=== PATIENT | male | born 1970 | race Caucasian/White ===

== ENCOUNTER 2018-11-14 15:00 | Emergency (ER) | payer OTHER ==
[~2018-11-14] VITALS: Ht 180.3 cm; Wt 89.5 kg
[~2018-11-14 15:00] MED LIST: ASPI81TA45 PO; ATOR20TA PO; CARV3.1212 PO; CLIN300C8 PO; ESCI5TAB7 PO; HYDR-3237 PO; INSU100I13 SC; INSU100I18 SQ-INSULIN; LOSA50TA14 PO; SULF1TAB24 PO
[2018-11-14 15:06] VITALS: BP 150/100
--- NOTE | 2018-11-14 15:21 | NUR ---
LIGHTING DIRECTOR: MCKAY 255 IN TRIAGE, CHECKED PER THEO [place]
== END 2018-11-14 16:18 | disposition home or self-care (01) ==
LOC: ED 15:59
DX: E11.65 Type 2 diabetes mellitus with hyperglycemia (principal); R05 Cough; I10 Essential (primary) hypertension; M79.18 Myalgia, other site; Z90.49 Acquired absence of other specified parts of digestive tract; Z86.73 Personal history of transient ischemic attack (TIA), and cerebral infarction without residual deficits
CPT/HCPCS: 71046; 82962; 99283

== ENCOUNTER 2018-11-18 21:42 | Inpatient (IN) | payer OTHER ==
[~2018-11-18] VITALS: Ht 185.4 cm; Wt 85.9 kg
[2018-11-18] MEDS ORDERED: SODIUM CHLORIDE FLUSH 10ML SYR IVF ONE (22:30)
[2018-11-18] MEDS ORDERED: SODIUM CHLORIDE 0.9% 1,000ML IVBOLUS ONE (22:30)
[2018-11-18 22:34] LABS: RAPID INFLUENZA A Negative (Negative); RAPID INFLUENZA B Negative (Negative)
[2018-11-18 22:45] LABS: PH, VENOUS 7.406 pH (7.320-7.420)
[2018-11-18 22:54] LABS: BASOPHILS # (AUTO) 0.02 x10^3/uL (0-0.1); BASOPHILS % (AUTO) 0 % (0-1); EOSINOPHILS % (AUTO) 0 % (1-7); LYMPHOCYTES # (AUTO) 0.84 x10^3/uL (1-3.4); LYMPHOCYTES % (AUTO) 9 % (22-44); MD NO; MEAN CORPUSCULAR HEMOGLOBIN 27.5 pg (27.5-34.5); MEAN CORPUSCULAR HGB CONC 33.8 g/dL (33.2-36.2); MEAN CORPUSCULAR VOLUME 81.4 fL (81-97); MEAN PLATELET VOLUME 9.5 fL (7.4-10.4); MONOCYTES # (AUTO) 0.63 x10^3/uL (0.2-0.8); MONOCYTES % (AUTO) 7 % (2-9); NEUTROPHILS % (AUTO) 84 % (42-75); PLATELET COUNT 233 x10^3/uL (130-400); RED BLOOD COUNT 5.27 x10^6/uL (4.38-5.82)
[2018-11-18 22:59] LABS: ALANINE AMINOTRANSFERASE 16 U/L (12-78); ALBUMIN 2.8 g/dL (3.4-5.0); ANION GAP 10 mmol/L (5-15); CALCIUM 8.8 mg/dL (8.5-10.1); CHLORIDE 93 mmol/L (98-107); CREATININE 1.77 mg/dL (0.7-1.3)
[2018-11-18] MEDS ORDERED: ONDANSETRON 2MG/ML, 2ML IVPush ONE (23:00)
[2018-11-18 23:01] LABS: ALKALINE PHOSPHATASE 94 U/L (45-117); BILIRUBIN,TOTAL 0.8 mg/dL (0.2-1.0); TOTAL PROTEIN 8.2 g/dL (6.4-8.2)
[2018-11-18 23:32] LABS: ACETONE, SERUM Large (80mg/dL) mg/dL (Negative)
--- NOTE | 2018-11-18 23:53 | NUR ---
IV WAS STARTED given ns bolus after labs results were obtained pt is resting at bed side
[2018-11-19] MEDS ORDERED: INSULIN REGULAR 100 UNITS/ML, 3ML VIAL ONE (00:44)
--- NOTE | 2018-11-19 00:46 | NUR ---
fsbs 347 given 10units of reg insulin via iv per dr welch pt is in and out sleeping oxygen sats 86-91% intermittently
[2018-11-19] MEDS ORDERED: INSULIN REGULAR 100 UNITS/ML, 3ML VIAL IVPush ONE (01:00)
--- NOTE | 2018-11-19 01:20 | NUR ---
recheck fsbs 305 after given iv insulin 10units
[2018-11-19 01:36] LABS: TROPONIN I < 0.015 ng/mL (0.000-0.045)
--- NOTE | 2018-11-19 01:45 | NUR ---
given water pt is resting applied oxygen via nc d/t oxygen sats decreased up to 83%
[2018-11-19] MEDS ORDERED: OMNIPAQUE 350 MG/ML, 100ML BOTTLE ONE (02:50)
[2018-11-19] MEDS ORDERED: AZITHROMYCIN 500 MG in SODIUM CHLORIDE 0.9% 250 ML IV ONE (03:30)
[2018-11-19] MEDS ORDERED: CEFTRIAXONE PMX 1GM/50ML 50 ML IV ONE (03:30)
[2018-11-19] MEDS ORDERED: SODIUM CHLORIDE 0.9% 1,000 ML IV SCH (03:45)
[2018-11-19] MEDS ORDERED: POLYETHYLENE GLYCOL 17 GM PACKET PO PRN (04:00)
[2018-11-19] MEDS ORDERED: hydrALAzine 20 MG/ML, 1ML IVPush PRN (04:00)
[2018-11-19] MEDS ORDERED: GUAIFENESIN/DM 200-20MG, 10ML UDC PO PRN (04:00)
[2018-11-19] MEDS ORDERED: GUAIFENESIN/COD200MG-20MG/10ML LIQUID PO PRN (04:00)
[2018-11-19] MEDS: CEFTRIAXONE PMX 1GM/50ML 50 ML IV SCH (04:00)
[2018-11-19] MEDS: AZITHROMYCIN 500 MG in SODIUM CHLORIDE 0.9% 250 ML IV SCH (04:00)
[2018-11-19] MEDS ORDERED: ACETAMINOPHEN 325 MG TABLET PO PRN (04:00)
[2018-11-19] MEDS ORDERED: ONDANSETRON 2MG/ML, 2ML IVPush PRN ×2 (04:00)
--- NOTE | 2018-11-19 04:09 | NUR ---
GIVEN WATER PT IS RESTING AT BED SIDE
[2018-11-19] MEDS ORDERED: CEFTRIAXONE PMX 1GM/50ML 50 ML ONE (04:26)
[2018-11-19] MEDS ORDERED: ONDANSETRON 2MG/ML, 2ML ONE (05:06)
--- NOTE | 2018-11-19 05:11 | NUR ---
PT C/O NAUSEA GIVEN ZOFRAN IV THEN PT STATED FEELS BETTER
--- NOTE | 2018-11-19 05:29 | NUR ---
GIVEN REPORT TO HUI DURAND PT WILL BE TRANSFERRED
[2018-11-19 05:50] VITALS: BP 104/69
[2018-11-19 07:23] VITALS: BP 135/89
[2018-11-19] MEDS ORDERED: INSULIN GLARGINE 100 UNITS/ML, PEN SQ-INSULIN SCH (09:00)
[2018-11-19] MEDS: CITALOPRAM 20 MG TABLET PO SCH (09:48)
[2018-11-19] MEDS: INSULIN LISPRO 100 UNITS/ML, PEN SQ-INSULIN SCH ×4 (09:48→20:12)
[2018-11-19] MEDS: GUAIFENESIN ER 600 MG TABLET PO SCH ×2 (09:49→20:12)
[2018-11-19] MEDS: INSULIN GLARGINE 100 UNITS/ML, PEN SQ-INSULIN SCH ×2 (09:50→20:11)
[2018-11-19] MEDS: ENOXAPARIN 40 MG/0.4 ML SQ SCH (09:51)
[2018-11-19 11:05] LABS: CULTURE INDICATED? NO; MICROSCOPIC AUTO
[2018-11-19 12:47] VITALS: BP 108/68
[2018-11-19] MEDS: SODIUM CHLORIDE 0.9% 1,000 ML IV SCH ×2 (14:53→23:56)
[2018-11-19 19:20] VITALS: BP 126/74
[2018-11-19] MEDS ORDERED: ATORVASTATIN 20 MG TABLET PO SCH (21:00)
[2018-11-20 01:15] VITALS: BP 113/64
[2018-11-20] MEDS: CEFTRIAXONE PMX 1GM/50ML 50 ML IV SCH (03:59)
[2018-11-20] MEDS: AZITHROMYCIN 500 MG in SODIUM CHLORIDE 0.9% 250 ML IV SCH (04:48)
[2018-11-20 05:56] LABS: BASOPHILS # (AUTO) 0.02 x10^3/uL (0-0.1); BASOPHILS % (AUTO) 0 % (0-1); EOSINOPHILS # (AUTO) 0.05 x10^3/uL (0-0.4); EOSINOPHILS % (AUTO) 1 % (1-7); LYMPHOCYTES # (AUTO) 0.63 x10^3/uL (1-3.4); LYMPHOCYTES % (AUTO) 10 % (22-44); MD NO; MEAN CORPUSCULAR HEMOGLOBIN 27.5 pg (27.5-34.5); MEAN CORPUSCULAR HGB CONC 33.9 g/dL (33.2-36.2); MEAN CORPUSCULAR VOLUME 80.9 fL (81-97); MEAN PLATELET VOLUME 9.2 fL (7.4-10.4); MONOCYTES # (AUTO) 0.63 x10^3/uL (0.2-0.8); MONOCYTES % (AUTO) 10 % (2-9); NEUTROPHILS # (AUTO) 4.86 x10^3/uL (1.8-6.8); NEUTROPHILS % (AUTO) 79 % (42-75); PLATELET COUNT 176 x10^3/uL (130-400); RED BLOOD COUNT 4.44 x10^6/uL (4.38-5.82); RED CELL DISTRIBUTION WIDTH 12.9 % (9.4-14.8)
[2018-11-20 06:00] LABS: CHLORIDE 106 mmol/L (98-107)
[2018-11-20 06:08] LABS: ALANINE AMINOTRANSFERASE 10 U/L (12-78); ALKALINE PHOSPHATASE 63 U/L (45-117); ANION GAP 4 mmol/L (5-15); BILIRUBIN,TOTAL 0.5 mg/dL (0.2-1.0); CREATININE 0.81 mg/dL (0.7-1.3); TOTAL PROTEIN 6.2 g/dL (6.4-8.2)
[2018-11-20] MEDS: INSULIN LISPRO 100 UNITS/ML, PEN SQ-INSULIN SCH ×2 (07:00→11:00)
[2018-11-20 07:02] VITALS: BP 145/84
[2018-11-20] MEDS: ENOXAPARIN 40 MG/0.4 ML SQ SCH (09:35)
[2018-11-20] MEDS: CITALOPRAM 20 MG TABLET PO SCH (09:35)
[2018-11-20] MEDS: GUAIFENESIN ER 600 MG TABLET PO SCH (09:35)
[2018-11-20] MEDS: INSULIN GLARGINE 100 UNITS/ML, PEN SQ-INSULIN SCH (09:37)
[2018-11-20] MEDS ORDERED: CEFP200T PO (11:00)
[2018-11-20] MEDS ORDERED: AZIT250T PO (11:00)
[2018-11-20] MEDS ORDERED: INSU100I13 SC (11:00)
[2018-11-20] MEDS ORDERED: GUAI600T31 PO (11:00)
[2018-11-20 12:30] VITALS: BP 105/73
== END 2018-11-20 17:39 | disposition home or self-care (01) | DRG 682 ==
LOC: ED 23:51 → EDIP 11-19 03:32 → SUATTDRO 11-19 03:35 → 4WST 11-19 05:36
PROVIDERS: ADMIT Hospitalist; ATTEND Hospitalist
DX: N17.9 Acute kidney failure, unspecified (principal); J15.9 Unspecified bacterial pneumonia; E43 Unspecified severe protein-calorie malnutrition; J96.01 Acute respiratory failure with hypoxia; M48.54XA Collapsed vertebra, not elsewhere classified, thoracic region, initial encounter for fracture; E87.1 Hypo-osmolality and hyponatremia; E11.65 Type 2 diabetes mellitus with hyperglycemia; I45.10 Unspecified right bundle-branch block; Z79.4 Long term (current) use of insulin; Z86.73 Personal history of transient ischemic attack (TIA), and cerebral infarction without residual deficits; I10 Essential (primary) hypertension; E86.9 Volume depletion, unspecified; Z90.49 Acquired absence of other specified parts of digestive tract; Z68.25 Body mass index [BMI] 25.0-25.9, adult
CPT/HCPCS: 36415; 71045; 71275; 80053; 81001; 82010; 82803; 82947; 82962; 83735; 83930; 84100; 84484; 85025; 87040; 87400; 93005; G0378; J0456; J0696; J1650; J2405; Q9967; J1815; J7030; J7050

== ENCOUNTER 2018-12-27 22:00 | Emergency (ER) | payer OTHER ==
[~2018-12-27] VITALS: Ht 177.8 cm; Wt 98.1 kg
[~2018-12-27 22:00] MED LIST changes: +AZIT250T PO; +CEFP200T PO; +GUAI600T31 PO
[2018-12-28 00:35] LABS: HCT (SEDRATE) 34.7 % (39.2-51.8)
[2018-12-28 00:36] LABS: BASOPHILS # (AUTO) 0.03 x10^3/uL (0-0.1); BASOPHILS % (AUTO) 0 % (0-1); EOSINOPHILS # (AUTO) 0.14 x10^3/uL (0-0.4); EOSINOPHILS % (AUTO) 2 % (1-7); LYMPHOCYTES # (AUTO) 1.19 x10^3/uL (1-3.4); LYMPHOCYTES % (AUTO) 16 % (22-44); MD NO; MEAN CORPUSCULAR HEMOGLOBIN 27.6 pg (27.5-34.5); MEAN CORPUSCULAR HGB CONC 33.9 g/dL (33.2-36.2); MEAN CORPUSCULAR VOLUME 81.4 fL (81-97); MONOCYTES # (AUTO) 0.58 x10^3/uL (0.2-0.8); MONOCYTES % (AUTO) 8 % (2-9); NEUTROPHILS # (AUTO) 5.71 x10^3/uL (1.8-6.8); NEUTROPHILS % (AUTO) 75 % (42-75); PLATELET COUNT 201 x10^3/uL (130-400); RED BLOOD COUNT 4.42 x10^6/uL (4.38-5.82); RED CELL DISTRIBUTION WIDTH 14.4 % (9.4-14.8)
[2018-12-28 00:47] LABS: ALANINE AMINOTRANSFERASE 20 U/L (12-78); ALBUMIN 3.1 g/dL (3.4-5.0); ANION GAP 5 mmol/L (5-15); CALCIUM 8.8 mg/dL (8.5-10.1); CHLORIDE 106 mmol/L (98-107); CREATININE 1.08 mg/dL (0.7-1.3)
[2018-12-28 00:54] LABS: ALKALINE PHOSPHATASE 79 U/L (45-117); BILIRUBIN,TOTAL 0.7 mg/dL (0.2-1.0); TOTAL PROTEIN 7.7 g/dL (6.4-8.2)
[2018-12-28] MEDS ORDERED: INSU100I13 SQ (00:56)
[2018-12-28] MEDS ORDERED: ESCI20TA PO (00:56)
[2018-12-28] MEDS ORDERED: LIDOCAINE 1%, 10ML INFIL ONE (01:30)
[2018-12-28] MEDS ORDERED: LIDOCAINE-MPF 1%, 5ML ONE ×2 (01:48→02:00)
--- NOTE | 2018-12-28 02:55 | NUR ---
ERP AT PT'S BEDSIDE FOR ARTHROCENTESIS TO LEFT KNEE Addendum: 12/28/18 at 0259 by KYRA AND RIGHT ELBOW
[2018-12-28 04:17] VITALS: BP 118/82
--- NOTE | 2018-12-28 04:18 | NUR ---
PT RESTING ON GURNEY, MONITORS IN PLACE, SIDERAILS UP X2, CALL LIGHT WITHIN REACH. ERP AT BEDSIDE FOR RECHECK
[2018-12-28] MEDS ORDERED: CEPHALEXIN 500 MG CAPSULE ONE (04:22)
[2018-12-28] MEDS ORDERED: SULFAMETH./TRIMETHOPRIM DS 800MG/160MG TABLET ONE (04:23)
--- NOTE | 2018-12-28 04:25 | NUR ---
PT MEDICATED PER MAR
[2018-12-28] MEDS ORDERED: SULFAMETH./TRIMETHOPRIM DS 800MG/160MG TABLET PO ONE (04:30)
[2018-12-28] MEDS ORDERED: CEPHALEXIN 500 MG CAPSULE PO ONE (04:30)
== END 2018-12-28 04:38 | disposition home or self-care (01) ==
LOC: ED 12-28 01:33
DX: L03.116 Cellulitis of left lower limb (principal); M19.021 Primary osteoarthritis, right elbow; Z90.49 Acquired absence of other specified parts of digestive tract; Z87.891 Personal history of nicotine dependence; Z86.73 Personal history of transient ischemic attack (TIA), and cerebral infarction without residual deficits
CPT/HCPCS: 20611; 36415; 80053; 82945; 83605; 83615; 84145; 84157; 84560; 85025; 85651; 85810; 86140; 87040; 87070; 87205; 89050; 89060; 99284